=== PATIENT | male | born 1990 | race Caucasian/White ===

== ENCOUNTER 2022-06-15 15:50 | Emergency (ER) | payer MEDICAID ==
[~2022-06-15] VITALS: Ht 172.7 cm; Wt 76.0 kg
[2022-06-15] MEDS ORDERED: ondansetron/PF 4mg/2ml inj IV ONE (16:15)
[2022-06-15] MEDS ORDERED: ketorolac trometh. 30mg/ml inj. IV ONE (16:15)
[2022-06-15 16:23] LABS: BASOPHILS # (AUTO) 0.1 X10'3 (0-0.2); BASOPHILS % (AUTO) 0.8 % (0-1); EOSINOPHILS # (AUTO) 0.1 X10'3 (0-0.9); EOSINOPHILS % (AUTO) 1.2 % (0-6); HEMATOCRIT 46.1 % (42.0-52.0); HEMOGLOBIN 15.5 g/dl (14.0-17.9); LYMPHOCYTES # (AUTO) 3.5 X10'3 (1.1-4.8); LYMPHOCYTES % (AUTO) 43.5 % (21-51); MEAN CORPUSCULAR HEMOGLOBIN 31.7 PG (27.0-31.0); MEAN CORPUSCULAR HGB CONC 33.6 g/dL (33.0-36.5); MEAN CORPUSCULAR VOLUME 94.4 FL (78-98); MEAN PLATELET VOLUME 11.3 FL (7.4-10.4); MONOCYTES # (AUTO) 0.5 X10'3 (0-0.9); MONOCYTES % (AUTO) 6.4 % (2-12); NEUTROPHILS # (AUTO) 3.8 X10'3 (1.8-7.7); NEUTROPHILS % (AUTO) 48.1 % (42-75); PLATELET COUNT 225 X10'3 (140-440); RED BLOOD COUNT 4.89 X10'6 (4.70-6.10); RED CELL DISTRIBUTION WIDTH 12.3 % (11.5-14.5); WHITE BLOOD COUNT 7.9 X10'3 (4.5-11.0)
[2022-06-15] MEDS ORDERED: normal saline 1000ML IV soln IVB ONE (16:25)
--- NOTE | 2022-06-15 16:32 | NUR ---
PT HAS REC'D IV, MEDS AND ULTRASOUND JUST COMPLETED BEDSIDE STUDY.
[2022-06-15 16:42] LABS: ALANINE AMINOTRANSFERASE 72 U/L (12-78); ALBUMIN 4.1 G/DL (3.4-5.0); ALBUMIN/GLOBULIN RATIO 1.1 (1.1-1.5); ALKALINE PHOSPHATASE 72 IU/L (46-116); ANION GAP 10 (8-16); ASPARTATE AMINO TRANSFERASE 26 U/L (10-37); BILIRUBIN,TOTAL 0.4 MG/DL (0.1-1.0); BLOOD UREA NITROGEN 20 MG/DL (7-18); BUN/CREATININE RATIO 18.9 (5.4-32.0); CALCIUM 9.2 MG/DL (8.5-10.1); CHLORIDE 101 MMOL/L (99-107); CREATININE 1.06 MG/DL (0.60-1.10); GLUCOSE 135 MG/DL (70-104); POTASSIUM 3.8 MMOL/L (3.5-5.1); SODIUM 138 MMOL/L (135-145); TOTAL CARBON DIOXIDE 27.2 MMOL/L (24-32); TOTAL PROTEIN 7.7 G/DL (6.4-8.2); eGFR 80 ML/MIN
[2022-06-15] MEDS ORDERED: NORMAL SALINE IV ONE (17:00)
[2022-06-15] MEDS ORDERED: KETAMINE IV ONE (17:00)
[2022-06-15 18:24] VITALS: BP 139/78
== END 2022-06-15 18:29 | disposition home or self-care (01) ==
LOC: ER 15:52
DX: N20.0 Calculus of kidney (principal); N50.812 Left testicular pain; R55 Syncope and collapse
CPT/HCPCS: 36415; 74176; 76870; 80053; 85025; 93976; 96361; 96374; 96375; 99284; J1885; J2405; J7030

== ENCOUNTER 2022-07-13 09:40 | Emergency (ER) | payer MEDICAID ==
[~2022-07-13] VITALS: Ht 172.7 cm; Wt 65.0 kg
[2022-07-13] MEDS ORDERED: ketorolac trometh. 30mg/ml inj. IM ONE (10:50)
[2022-07-13] MEDS ORDERED: normal saline 1000ML IV soln IVB ONE (11:35)
--- NOTE | 2022-07-13 11:51 | NUR ---
CHARGE NURSE NOTIFIED OF GENERAL ASSESSMENT DONE FOR REVIEW.
[2022-07-13] MEDS ORDERED: HYDR-3965 PO (12:29)
[2022-07-13 12:39] VITALS: BP 123/78
== END 2022-07-13 12:54 | disposition home or self-care (01) ==
LOC: ER 09:40
DX: R20.2 Paresthesia of skin (principal); R51.9 Headache, unspecified
CPT/HCPCS: 96360; 96372; 99283; J1885; J7030

== ENCOUNTER 2022-12-16 16:55 | Emergency (ER) | payer SELFPAY ==
[~2022-12-16] VITALS: Ht 172.7 cm; Wt 79.5 kg
[2022-12-16 17:29] LABS: BASOPHILS % (AUTO) 0.2 % (0-1); EOSINOPHILS # (AUTO) 0.1 X10'3 (0-0.9); EOSINOPHILS % (AUTO) 0.7 % (0-6); HEMATOCRIT 44.7 % (42.0-52.0); HEMOGLOBIN 15.3 g/dl (14.0-17.9); LYMPHOCYTES # (AUTO) 2.5 X10'3 (1.1-4.8); LYMPHOCYTES % (AUTO) 29.7 % (21-51); MEAN CORPUSCULAR HEMOGLOBIN 31.9 PG (27.0-31.0); MEAN CORPUSCULAR HGB CONC 34.2 g/dL (33.0-36.5); MEAN CORPUSCULAR VOLUME 93.4 FL (78-98); MEAN PLATELET VOLUME 10.8 FL (7.4-10.4); MONOCYTES # (AUTO) 0.6 X10'3 (0-0.9); MONOCYTES % (AUTO) 7.7 % (2-12); NEUTROPHILS # (AUTO) 5.1 X10'3 (1.8-7.7); NEUTROPHILS % (AUTO) 61.7 % (42-75); PLATELET COUNT 221 X10'3 (140-440); RED BLOOD COUNT 4.78 X10'6 (4.70-6.10); RED CELL DISTRIBUTION WIDTH 13.5 % (11.5-14.5); WHITE BLOOD COUNT 8.3 X10'3 (4.5-11.0)
--- NOTE | 2022-12-16 17:30 | NUR ---
[facility] WAS GIVEN BAD NEWS TODAY REGARDING HIS MEDICAL HX AND PT WAS AT [facility] ATTEMPTING TO JUMP OFF. DEPUTY REQUESTS THAT WE NOTIFY [facility] UPON TSERING. LYN NOTIFIED.
[2022-12-16 17:49] LABS: ALANINE AMINOTRANSFERASE 32 U/L (12-78); ALBUMIN 4.7 G/DL (3.4-5.0); ALBUMIN/GLOBULIN RATIO 1.6 (1.1-1.5); ALKALINE PHOSPHATASE 73 IU/L (46-116); ANION GAP 12 (8-16); ASPARTATE AMINO TRANSFERASE 22 U/L (10-37); BILIRUBIN,TOTAL 0.4 MG/DL (0.1-1.0); BLOOD UREA NITROGEN 13 MG/DL (7-18); BUN/CREATININE RATIO 11.6 (10.0-20.0); CALCIUM 9.4 MG/DL (8.5-10.1); CHLORIDE 102 MMOL/L (99-107); CREATININE 1.12 MG/DL (0.60-1.10); GLUCOSE 107 MG/DL (70-104); POTASSIUM 3.9 MMOL/L (3.5-5.1); SODIUM 143 MMOL/L (135-145); TOTAL CARBON DIOXIDE 28.8 MMOL/L (24-32); TOTAL PROTEIN 7.6 G/DL (6.4-8.2); eGFR 76 ML/MIN
[2022-12-16 17:57] LABS: ETHANOL < 0.010 GM/DL (0.0-0.010)
--- NOTE | 2022-12-16 18:10 | NUR ---
PT PRESENTS AGITATED AND UNWILLING TO ANSWER QUESTIONS. PT DENIES S/I, S/A, DEMANDING TO SPEAK WITH A MENTAL HEALTH TECH SO THAT HE CAN GO HOME. PT STATES HE HAS SEVERAL MEDICAL NEEDS THAT HIS TENDS TO FOR HIM LIKE ICE PACKS FOR HIS FACE ETC. PT STATES HIS IS HIS [employer] AND HE NEEDS HER AROUND THE CLOCK FOR HIS CARE. PT ALSO DEMANDING HIS CELL PHONE. PT EDUCATED PER SAFETY P&P AND 5150 PROCESS. PT VERBALIZED UNDERSTANDING AND HIS DISAGREEMENT/ DISTAIN W/ BEING HERE. CRN NOTIFIED.
--- NOTE | 2022-12-16 19:19 | NUR ---
The patient moved to bed 25 from the main ER. He has been very cooperative. He denies that he is suicidal.
[2022-12-16 19:25] LABS: CLARITY,URINE CLEAR (Clear); COLOR,URINE YELLOW (Yellow); GLUCOSE, URINE NEGATIVE (Neg); KETONES,URINE NEGATIVE (Neg); LEUKOCYTE ESTERASE ,URINE NEGATIVE (Neg); NITRITES, URINE NEGATIVE (Neg); OCCULT BLOOD,URINE NEGATIVE (Neg); PH,URINE 6.5 (4.8-8.0); PROTEIN,URINE NEGATIVE (Neg)
[2022-12-16 19:29] LABS: UA COLLECTION TYPE CLN CATCH MIDSTREAM
[2022-12-16] MEDS ORDERED: naltrexone PO (19:44)
[2022-12-16] MEDS ORDERED: KETOTIFEN PO (19:44)
[2022-12-16] MEDS ORDERED: testosterone TOP (19:44)
[2022-12-16] MEDS ORDERED: DULO60CA59 PO (19:44)
[2022-12-16] MEDS ORDERED: GABA300C PO (19:44)
[2022-12-16] MEDS ORDERED: MYCO500T PO (19:44)
[2022-12-16 19:47] LABS: URINE AMPHETAMINE SCREEN NEGATIVE (Neg); URINE BARBITUATE SCREEN NEGATIVE (Neg); URINE BENZODIAZEPINES SCREEN NEGATIVE (Neg); URINE CANNABINOID SCREEN NEGATIVE (Neg); URINE COCAINE SCREEN NEGATIVE (Neg); URINE METHADONE SCREEN NEGATIVE (Neg); URINE OPIATE SCREEN NEGATIVE (Neg); URINE PHENCYCLIDINE SCREEN NEGATIVE (Neg)
[2022-12-16] MEDS ORDERED: gabapentin 300mg capsule PO ONE (20:10)
[2022-12-16] MEDS ORDERED: NALTREXONE 4.5 MG PO SCH (21:00)
[2022-12-16] MEDS ORDERED: PUMP TOP SCH (21:00)
--- NOTE | 2022-12-16 21:00 | NUR ---
PACKET SENT TO [facility]
[2022-12-16] MEDS: MYCOPHENOLATE MOFETIL PO SCH (21:26)
[2022-12-16] MEDS: KETOTIFEN PO SCH (21:26)
--- NOTE | 2022-12-16 22:32 | NUR ---
The patient has been pacing 2nd to restless legs. He is currently laying down
--- NOTE | 2022-12-16 23:17 | NUR ---
The patient appears to be sleeping
--- NOTE | 2022-12-17 01:16 | NUR ---
The patient appears to be sleeping
--- NOTE | 2022-12-17 03:14 | NUR ---
The patient is resting on his bed.
--- NOTE | 2022-12-17 05:06 | NUR ---
The patient has slept poorly during the night. He is currently up and pacing by his bed.
--- NOTE | 2022-12-17 06:10 | NUR ---
Received report from JUAN Machado. Patient is resting in bed at this time, no acute distress. Has a cold pack present for minor headpain. Feels stable at this time. Denies SI at this time. Patient has non slip socks on, bed locked/ lowest position. No acute distress at this time. Has been sleeping most of the morning.
[2022-12-17] MEDS: MYCOPHENOLATE MOFETIL PO SCH (07:55)
[2022-12-17] MEDS: KETOTIFEN PO SCH (07:56)
[2022-12-17] MEDS ORDERED: gabapentin 300mg capsule PO SCH (08:00)
[2022-12-17] MEDS ORDERED: duloxetine 30mg CAPSULE.DR PO SCH (08:00)
--- NOTE | 2022-12-17 09:50 | NUR ---
Patient was escorted out by security with . Alert and oritented, no acute distress. Patient was provided d/c instructions after being evaled by the mental health assesser. Does not require a psych referral at this time. Patient was sent home with belongings that where inventoried upon arrival. Including valuable, clothing and medications.
[2022-12-17 10:07] VITALS: BP 110/79
== END 2022-12-17 09:50 | disposition home or self-care (01) ==
LOC: ER 16:56
DX: R45.851 Suicidal ideations (principal); Z20.822 Contact with and (suspected) exposure to COVID-19; F31.9 Bipolar disorder, unspecified; Z79.899 Other long term (current) drug therapy
CPT/HCPCS: 80053; 80305; 80320; 81003; 84443; 85025; 87811; 99285